=== PATIENT | female | born 1985 | race Caucasian/White ===

== ENCOUNTER 2019-11-18 13:48 | Emergency (ER) | payer OTHER ==
[2019-11-18 14:11] VITALS: Ht 154.9 cm
[2019-11-18 16:18] LABS: CALCIUM 8.7 mg/dL (8.5-10.1); CARBON DIOXIDE 30.2 mmol/L (21-32); CHLORIDE SERUM 98 mmol/L (98-107); CREATININE SERUM 0.6 mg/dL (0.6-1.0); GFR1 > 60 mL/min; GLUCOSE SERUM 99 mg/dL (74-106); POTASSIUM SERUM 3.4 mmol/L (3.5-5.1); SODIUM SERUM 134 mmol/L (136-145)
[2019-11-18 16:23] LABS: ALKALINE PHOSPHATASE 75 U/L (46-116); ALT/SGPT 60 U/L (14-59); AST/SGOT 23 U/L (15-37); BASOPHIL % 0.6 % (0-2); BILIRUBIN TOTAL 0.5 mg/dL (0.20-1.00); LIPASE 118 IU/L (73-393); PLATELET COUNT 207 x10^3mcL (130-400); TOTAL PROTEIN, SERUM 8.1 g/dL (6.4-8.2)
[2019-11-18 17:29] VITALS: BP 116/80
== END 2019-11-18 17:29 | disposition home or self-care (01) ==
LOC: ED 13:48
PROVIDERS: Emergency Medicine
DX: G43.909 Migraine, unspecified, not intractable, without status migrainosus (principal)
CPT/HCPCS: J0780; J1100; J1885; J7030

== ENCOUNTER 2019-11-18 19:36 | Emergency (ER) | payer OTHER ==
[~2019-11-18] VITALS: Ht 154.9 cm; Wt 64.4 kg
[2019-11-18 19:46] VITALS: Ht 154.9 cm; Wt 64.4 kg
[2019-11-18 20:38] VITALS: BP 119/80
== END 2019-11-18 20:38 | disposition home or self-care (01) ==
LOC: ED 19:36
DX: R29.898 Other symptoms and signs involving the musculoskeletal system (principal); J45.909 Unspecified asthma, uncomplicated; G43.909 Migraine, unspecified, not intractable, without status migrainosus; Z88.0 Allergy status to penicillin
CPT/HCPCS: Q0163